=== PATIENT | male | born 1950 | race Caucasian/White ===

== ENCOUNTER → 2017-08-10 10:02 | Outpatient (CLI) | payer MEDICARE, SELFPAY ==
[2017-08-10 12:29] LABS: Absolute Lymphocyte Count 1.81 X10^3/ul (0.83-4.51); Absolute Neutrophil Count 2.5 X10^3/uL (2.0-7.7); Basophil# 0.04 X10^3/uL; Basophil% 0.7 % (0-1); Eosinophil# 0.28 X10^3/uL; Eosinophils% 5.2 % (0-5); Hematocrit 43.8 % (40-54); Hemoglobin 14.7 g/dl (13.0-16.5); Lymphocyte # 1.81 X10^3/ul (4.0); Lymphocyte % 33.5 % (19-41); Mean Corp Hgb Conc 33.6 g/gl (32-36); Mean Corpuscular Hgb 31.5 pg (27.0-32.0); Mean Corpuscular Volume 93.8 fL (80-94); Mean Platelet Vol. 10.4 fl (6.2-12.0); Monocyte# 0.81 X10^3/uL; Neutrophil # 2.47 X10^3/uL (2.7-7.7); Neutrophil % 45.6 % (47-70); Platelet Count 264 K/mm3 (150-450); RBC Distribution Width CV 12.3 % (11.6-14.6); RBC Distribution Width SD 41.6 fl (35.1-43.9); Red Blood Count 4.67 M/mm3 (4.6-6.2); White Blood Count 5.4 K/mm3 (4.4-11.0)
[2017-08-10 12:34] LABS: POSITIVE COUNT NO; POSITIVE DIFFERENTIAL NO; POSITIVE MORPHOLOGY NO
[2017-08-10 13:25] LABS: ALB/GLOB Ratio 1.1 RATIO (0.9-2.4); AST(SGOT) 28 U/L (15-37); Alanine Aminotransfer ALT/SGPT 38 U/L (12-78); Albumin, Serum 3.8 g/dL (3.4-5.0); Alkaline Phosphatase 62 U/L (45-117); Anion Gap 7 (5-15); BUN 15 mg/dL (7-18); BUN/Creat Ratio 15.2 RATIO (10-20); Calcium,Total 8.7 mg/dL (8.5-10.1); Chloride 104 mmol/L (98-107); Cholesterol 202 mg/dL (200); Creatinine, Serum 0.99 mg/dL (0.70-1.30); EST Glomerular Filtration Rate 81 mL/min (>60); Est Glom Filt Rate - Afr Amer 98 mL/min (>60); Globulin 3.4 g/dL (2.2-4.2); Glucose 94 mg/dL (70-110); High Density Lipoprotein 54 mg/dL; Potassium 4.2 mmol/L (3.5-5.1); Protein, Total 7.2 g/dL (6.4-8.2); Sodium Level 139 mmol/L (136-145); Thyroid Stim Hormone (TSH) 1.94 uIU/mL (0.358-3.74); Triglycerides 99 mg/dL; Very Low Density Lipoprotein 20 mg/dL (5-40)
== END ==
PROVIDERS: Family Provider Family Medicine; PCP Family Medicine; Visit Provider Family Medicine
DX: I10 Essential (primary) hypertension (principal); E78.5 Hyperlipidemia, unspecified
CPT/HCPCS: 36415; 80053; 80061; 84443; 85025

== ENCOUNTER → 2019-09-15 | Outpatient (CLI) | payer MEDICARE, SELFPAY ==
[2019-09-15 12:53] LABS: Absolute Lymphocyte Count 1.63 X10^3/uL (0.83-4.51); Absolute Neutrophil Count 2.5 X10^3/uL (2.0-7.7); Basophil# 0.05 X10^3/uL; Eosinophil# 0.37 X10^3/uL; Eosinophils% 7.2 % (0-5); Hematocrit 43.7 % (40-54); Hemoglobin 14.3 g/dL (13.0-16.5); Lymphocyte # 1.63 X10^3/ul (4.0); Lymphocyte % 31.5 % (19-41); Mean Corp Hgb Conc 32.7 g/dL (32-36); Mean Corpuscular Hgb 30.8 pg (27.0-32.0); Mean Corpuscular Volume 94.2 fL (80-94); Mean Platelet Vol. 10.4 fl (6.2-12.0); Monocyte# 0.63 X10^3/uL; Monocyte% 12.2 % (0-10); NRBC Flagged by Analyzer 0 % (0-5); Neutrophil # 2.48 X10^3/uL (2.7-7.7); Neutrophil % 47.9 % (47-70); Platelet Count 256 K/mm3 (150-450); RBC Distribution Width CV 12.3 % (11.6-14.6); RBC Distribution Width SD 41.9 fl (35.1-43.9); Red Blood Count 4.64 M/mm3 (4.6-6.2); White Blood Count 5.2 K/mm3 (4.4-11.0)
[2019-09-15 13:24] LABS: ALB/GLOB Ratio 1.1 RATIO (0.9-2.4); AST(SGOT) 28 U/L (15-37); Alanine Aminotransfer ALT/SGPT 35 U/L (16-61); Albumin, Serum 3.7 g/dL (3.2-5.0); Alkaline Phosphatase 63 U/L (45-117); Anion Gap 3 (5-15); BUN 13 mg/dL (7-18); BUN/Creat Ratio 13.9 RATIO (10-20); Calcium,Total 8.8 mg/dL (8.5-10.1); Chloride 108 mmol/L (98-107); Cholesterol 204 mg/dL (200); Creatinine, Serum 0.93 mg/dL (0.70-1.30); EST Glomerular Filtration Rate 86 mL/min (>60); Est Glom Filt Rate - Afr Amer 104 mL/min (>60); Globulin 3.3 g/dL (2.2-4.2); Glucose 93 mg/dL (74-106); High Density Lipoprotein 51 mg/dL; Potassium 4.2 mmol/L (3.5-5.1); Sodium Level 140 mmol/L (136-145); Triglycerides 143 mg/dL; Very Low Density Lipoprotein 29 mg/dL (5-40)
== END | disposition home or self-care (01) ==
PROVIDERS: PCP Family Medicine; Visit Provider Family Medicine
DX: Z00.00 Encounter for general adult medical examination without abnormal findings (principal); E78.5 Hyperlipidemia, unspecified; E16.2 Hypoglycemia, unspecified; Z51.81 Encounter for therapeutic drug level monitoring
CPT/HCPCS: 36415; 80053; 80061; 85025

== ENCOUNTER → 2019-09-18 | Outpatient (CLI) | payer MEDICARE, SELFPAY ==
[2019-09-18 16:12] LABS: PSA,Total - Annual Screen 0.44 ng/mL (0.00-4.00)
[2019-09-23 20:07] LABS: Dilute Prothrombin Time (dPT) 41.2 sec (0.0-55.0); Dilute Russell Viper Venom 40.9 sec (0.0-47.0); PTT-LA 36.8 sec (0.0-51.9); Protein C Antigen 93 % (60-150); Protein C, Functional 111 % (73-180); Thrombin Time 17.7 sec (0.0-23.0); dPT Confirm Ratio 0.92 Ratio (0.00-1.40)
[2019-09-23 21:48] LABS: Antithrombin 3 Function 88 % (75-135); Interpretation Comment: (.); Protein S, Free 168 % (57-157); Protein S, Funtional 115 % (63-140); Protein S, Total 106 % (60-150)
== END | disposition home or self-care (01) ==
LOC: BFHLAB 14:00
PROVIDERS: PCP Family Medicine; Visit Provider Family Medicine
DX: D68.59 Other primary thrombophilia (principal); Z12.5 Encounter for screening for malignant neoplasm of prostate
CPT/HCPCS: 36415; 81241; 84153; 85300; 85302; 85303; 85305; 85306; G0103

== ENCOUNTER → 2022-01-02 | Outpatient (CLI) | payer MEDICARE, SELFPAY ==
[2022-01-02 11:15] LABS: Absolute Lymphocyte Count 2.05 X10^3/uL (0.83-4.51); Absolute Neutrophil Count 3.6 X10^3/uL (2.0-7.7); Basophil# 0.05 X10^3/uL; Basophil% 0.7 % (0-1); Eosinophil# 0.33 X10^3/uL; Eosinophils% 4.7 % (0-5); Hematocrit 42.4 % (40-54); Hemoglobin 14.2 g/dL (13.0-16.5); Lymphocyte # 2.05 X10^3/ul (0.83-4.51); Lymphocyte % 29.2 % (19-41); Mean Corp Hgb Conc 33.5 g/dL (32-36); Mean Corpuscular Hgb 30.9 pg (27.0-32.0); Mean Corpuscular Volume 92.4 fL (80-94); Mean Platelet Vol. 9.5 fl (6.2-12.0); Monocyte# 1.02 X10^3/uL; Monocyte% 14.5 % (0-10); NRBC Flagged by Analyzer 0 % (0-5); Neutrophil # 3.56 X10^3/uL (2.7-7.7); Neutrophil % 50.8 % (47-70); Platelet Count 270 K/mm3 (150-450); RBC Distribution Width CV 12.5 % (11.6-14.6); RBC Distribution Width SD 42.4 fl (35.1-43.9); Red Blood Count 4.59 M/mm3 (4.6-6.2)
[2022-01-02 12:00] LABS: ALB/GLOB Ratio 1.1 RATIO (0.9-2.4); AST(SGOT) 27 U/L (15-37); Alanine Aminotransfer ALT/SGPT 40 U/L (16-61); Albumin, Serum 3.6 g/dL (3.2-5.0); Alkaline Phosphatase 60 U/L (45-117); Anion Gap 4 (5-15); BUN 16 mg/dL (7-18); BUN/Creat Ratio 15.8 RATIO (10-20); Calcium,Total 8.9 mg/dL (8.5-10.1); Chloride 106 mmol/L (98-107); Cholesterol 206 mg/dL (200); Creatinine, Serum 1.01 mg/dL (0.70-1.30); EST Glomerular Filtration Rate 78 mL/min (>60); Est Glom Filt Rate - Afr Amer 94 mL/min (>60); Globulin 3.4 g/dL (2.2-4.2); Glucose 93 mg/dL (74-106); High Density Lipoprotein 52 mg/dL; PSA,Total - Annual Screen 0.51 ng/mL (0.00-4.00); Potassium 4.4 mmol/L (3.5-5.1); Sodium Level 140 mmol/L (136-145); Triglycerides 63 mg/dL; Very Low Density Lipoprotein 13 mg/dL (5-40)
== END | disposition home or self-care (01) ==
PROVIDERS: PCP Family Medicine; Referring Provider Family Medicine; Visit Provider Family Medicine
DX: E16.2 Hypoglycemia, unspecified (principal); E78.5 Hyperlipidemia, unspecified; R53.83 Other fatigue; Z12.5 Encounter for screening for malignant neoplasm of prostate
CPT/HCPCS: 36415; 80053; 80061; 84153; 85025; G0103

== ENCOUNTER → 2024-07-23 | Outpatient (CLI) | payer MEDICARE, SELFPAY ==
[2024-07-23 12:46] LABS: ALB/GLOB Ratio 1.1 RATIO (0.9-2.4); AST(SGOT) 23 U/L (15-37); Alanine Aminotransfer ALT/SGPT 30 U/L (16-61); Albumin, Serum 3.6 g/dL (3.2-5.0); Alkaline Phosphatase 64 U/L (45-117); Anion Gap 3 (5-15); BUN 14 mg/dL (7-18); BUN/Creat Ratio 14.3 RATIO (10-20); Calcium,Total 9.1 mg/dL (8.5-10.1); Chloride 107 mmol/L (98-107); Cholesterol 231 mg/dL (200); Creatinine, Serum 0.98 mg/dL (0.70-1.30); EST Glomerular Filtration Rate 80 mL/min (>60); Est Glom Filt Rate - Afr Amer 96 mL/min (>60); Globulin 3.4 g/dL (2.2-4.2); Glucose 102 mg/dL (74-106); High Density Lipoprotein 58 mg/dL; Potassium 4.3 mmol/L (3.5-5.1); Sodium Level 139 mmol/L (136-145); Triglycerides 103 mg/dL; Very Low Density Lipoprotein 21 mg/dL (5-40)
[2024-07-23 13:07] LABS: Absolute Neutrophil Count 3.5 X10^3/uL (2.0-7.7); Basophil# 0.06 X10^3/uL; Basophil% 0.8 % (0-1); Eosinophil# 0.47 X10^3/uL; Eosinophils% 6.6 % (0-5); Hematocrit 44.9 % (40-54); Hemoglobin 14.6 g/dL (13.0-16.5); Lymphocyte % 29.7 % (19-41); Mean Corp Hgb Conc 32.5 g/dL (32-36); Mean Corpuscular Hgb 30.5 pg (27.0-32.0); Mean Corpuscular Volume 93.9 fL (80-94); Monocyte# 0.91 X10^3/uL; Monocyte% 12.9 % (0-10); NRBC Flagged by Analyzer 0 % (0-5); Neutrophil # 3.52 X10^3/uL (2.7-7.7); Neutrophil % 49.7 % (47-70); Platelet Count 303 K/mm3 (150-450); RBC Distribution Width CV 12.5 % (11.6-14.6); RBC Distribution Width SD 43.2 fl (35.1-43.9); Red Blood Count 4.78 M/mm3 (4.6-6.2); White Blood Count 7.1 K/mm3 (4.4-11.0)
== END | disposition home or self-care (01) ==
LOC: BFHLAB 10:40
PROVIDERS: PCP Family Medicine; Referring Provider Family Medicine; Visit Provider Family Medicine
DX: E78.5 Hyperlipidemia, unspecified (principal); Z12.5 Encounter for screening for malignant neoplasm of prostate; Z51.81 Encounter for therapeutic drug level monitoring
CPT/HCPCS: 36415; 80053; 80061; 84153; 85025; G0103

== ENCOUNTER → 2025-02-26 | Outpatient (CLI) | payer MEDICARE, SELFPAY ==
[2025-02-26 12:57] LABS: PSA,Total- Diagnostic 0.37 ng/mL (0.00-4.00)
[2025-02-26 13:36] LABS: Cholesterol 234 mg/dL (<=200); Low Density Lipoprotein Calc. 161 mg/dL; Triglycerides 95 mg/dL; Very Low Density Lipoprotein 19 mg/dL (5-40); cholesterol:hdl ratio screen 4.33
--- OUTSIDE RECORDS SUMMARY | 2025-02-26 15:27 | XMS RPT_ITS | CCD ---
Author Organization [facility] CliniSymi Care Team Providers Care Manager Ent Name Role Phone Jory Tapia Attending Unavailable Jory Tapia Referring Unavailable Jory Tapia Primary Care Unavailable Jory Tapia Attending Unavailable Jory Tapia Primary Care Unavailable Problems Problem Classification Problem Date Documented Da te Episodic/Chronic Disorders of lipid metabolism (2 sources) Hyperlipidemia, unspecified; Translations: [Hyperlipidemia, unspecified] Onset: 08-14-2024 Chronic Other screening for suspected conditions (not mental disorders or infectious disease) (1 source) Elevated prostate specific antigen [PSA]; Translations: [Elevated prostate specific antigen [PSA]] Onset: 02-23-2025 Episodic Results Test Name Value Interpretation Reference Range Facil ity CBC W/Diff, Automatedon - Absolute Lymph 2.10 X10 3/uL Normal 0.83-4.51 [facility] Comment on above: Performed By: #### L 501.9910, L500.4050, L500.4100, L100.0100 #### [facility] [address] [place], [address] Absolute Neut 3.5 X10 3/uL Normal 2.0-7.7 [facility] Comment on above: Performed By: #### L 501.9910, L500.4050, L500.4100, L100.0100 #### [facility] [address] [place], [address] Basophils/100 WBC (Bld) 0.8 % Normal 0-1 [facility] Comment on above: Performed By: #### L 501.9910, L500.4050, L500.4100, L100.0100 #### [facility] [address] [place], [address] Eosinophils/100 WBC (Bld) 6.6 % High 0-5 [facility] Comment on above: Performed By: #### L 501.9910, L500.4050, L500.4100, L100.0100 #### [facility] [address] [place], [address] Erythrocyte distribution width (RBC) [Ratio] 12.5 % Normal 11.6-14.6 [facility] Comment on above: Performed By: #### L 501.9910, L500.4050, L500.4100, L100.0100 #### [facility] [address] [place], [address] Hematocrit (Bld) [Volume fraction] 44.9 % Normal 40-54 [facility] Comment on above: Performed By: #### L 501.9910, L500.4050, L500.4100, L100.0100 #### [facility] [address] [place], [address] Hemoglobin (Bld) [Mass/Vol] 14.6 g/dL Normal 13.0-16.5 [facility] Comment on above: Performed By: #### L 501.9910, L500.4050, L500.4100, L100.0100 #### [facility] [address] [place], [address] IG% 0.300 Normal 0.0-0.9 [facility] Comment on above: Result Comment: IG% - Immature Granulocytes (promyelocytes, myelocytes and metamyelocytes) > 1% indicates that a LEFT SHIFT is Present. Performed By: #### L 501.9910, L500.4050, L500.4100, L100.0100 #### [facility] [address] [place], [address] Lymphocytes/100 WBC (Bld) 29.7 % Normal 19-41 [facility] Comment on above: Performed By: #### L 501.9910, L500.4050, L500.4100, L100.0100 #### [facility] [address] [place], [address] MCH (RBC) [Entitic mass] 30.5 pg Normal 27.0-32.0 [facility] Comment on above: Performed By: #### L 501.9910, L500.4050, L500.4100, L100.0100 #### [facility] [address] [place], [address] MCHC (RBC) [Mass/Vol] 32.5 g/dL Normal 32-36 [facility] Comment on above: Performed By: #### L 501.9910, L500.4050, L500.4100, L100.0100 #### [facility] [address] [place], [address] MCV (RBC) [Entitic vol] 93.9 fL Normal 80-94 [facility] Comment on above: Performed By: #### L 501.9910, L500.4050, L500.4100, L100.0100 #### [facility] [address] [place], [address] Monocytes/100 WBC (Bld) 12.9 % High 0-10 [facility] Comment on above: Performed By: #### L 501.9910, L500.4050, L500.4100, L100.0100 #### [facility] [address] [place], [address] Neutrophils/100 WBC (Bld) 49.7 % Normal 47-70 [facility] Comment on above: Performed By: #### L 501.9910, L500.4050, L500.4100, L100.0100 #### [facility] [address] [place], [address] Nucleated RBC (Bld) [#/Vol] 0 10*3/uL Normal 0-5 [facility] Comment on above: Performed By: #### L 501.9910, L500.4050, L500.4100, L100.0100 #### [facility] [address] [place], [address] Platelet mean volume (Bld) [Entitic vol] 10.0 fL Normal 6.2-12.0 [facility] Comment on above: Performed By: #### L 501.9910, L500.4050, L500.4100, L100.0100 #### [facility] [address] [place], [address] Platelets (Bld) [#/Vol] 303 10*3/uL Normal 150-450 [facility] Comment on above: Performed By: #### L 501.9910, L500.4050, L500.4100, L100.0100 #### [facility] [address] [place], [address] RBC (Bld) [#/Vol] 4.78 10*6/uL Normal 4.6-6.2 [facility] Comment on above: Performed By: #### L 501.9910, L500.4050, L500.4100, L100.0100 #### [facility] [address] [place], [address] RDW SD 43.2 fl Normal 35.1-43.9 [facility] Comment on above: Performed By: #### L 501.9910, L500.4050, L500.4100, L100.0100 #### [facility] [address] [place], [address] WBC (Bld) [#/Vol] 7.1 10*3/uL Normal 4.4-11.0 [facility] Comment on above: Performed By: #### L 501.9910, L500.4050, L500.4100, L100.0100 #### [facility] [address] [place], [address] Comprehensive Metabolic Prof ilon 07-23-2024 Albumin [Mass/Vol] 3.6 g/dL Normal 3.2-5.0 [facility] Comment on above: Performed By: #### L 501.9910, L500.4050, L500.4100, L100.0100 #### [facility] [address] [place], [address] Albumin/Globulin [Mass ratio] 1.1 {ratio} Normal 0.9-2.4 [facility] Comment on above: Performed By: #### L 501.9910, L500.4050, L500.4100, L100.0100 #### [facility] [address] [place], [address] ALK P 64 U/L Normal 45-117 [facility] Comment on above: Performed By: #### L 501.9910, L500.4050, L500.4100, L100.0100 #### [facility] [address] [place], [address] ALT [Catalytic activity/Vol] 30 U/L Normal 16-61 [facility] Comment on above: Performed By: #### L 501.9910, L500.4050, L500.4100, L100.0100 #### [facility] [address] [place], [address] AST [Catalytic activity/Vol] 23 U/L Normal 15-37 [facility] Comment on above: Performed By: #### L 501.9910, L500.4050, L500.4100, L100.0100 #### [facility] [address] [place], [address] Bilirubin [Mass/Vol] 0.70 mg/dL Normal 0.20-1.00 [facility] Comment on above: Result Comment: For patients on eltrombopag therapy, use of Dimension [place] TBIL is not recommended. Performed By: #### L 501.9910, L500.4050, L500.4100, L100.0100 #### [facility] [address] [place], [address] BUN/CRE 14.3 RATIO Normal 10-20 [facility] Comment on above: Performed By: #### L 501.9910, L500.4050, L500.4100, L100.0100 #### [facility] [address] [place], [address] CA,Total 9.1 mg/dL Normal 8.5-10.1 [facility] Comment on above: Performed By: #### L 501.9910, L500.4050, L500.4100, L100.0100 #### [facility] [address] [place], [address] Chloride [Moles/Vol] 107 mmol/L Normal 98-107 [facility] Comment on above: Performed By: #### L 501.9910, L500.4050, L500.4100, L100.0100 #### [facility] [address] [place], [address] CO2 [Moles/Vol] 29.0 mmol/L Normal 21.0-32.0 [facility] Comment on above: Performed By: #### L 501.9910, L500.4050, L500.4100, L100.0100 #### [facility] [address] [place], [address] Creatinine [Mass/Vol] 0.98 mg/dL Normal 0.70-1.30 [facility] Comment on above: Result Comment: The validity of the calculated GFR GFRAA in patients over 70 years has not been determined. Clinical correlation is essential. Performed By: #### L 501.9910, L500.4050, L500.4100, L100.0100 #### [facility] [address] [place], [address] EST GFR - AA 96 mL/min Normal >60 [facility] Comment on above: Result Comment: Afri can Ukrainian GFR Calc Performed By: #### L 501.9910, L500.4050, L500.4100, L100.0100 #### [facility] [address] [place], [address] GAP 3 Low 5-15 [facility] Comment on above: Performed By: #### L 501.9910, L500.4050, L500.4100, L100.0100 #### [facility] [address] [place], [address] GFR/1.73 sq M.predicted among non-blacks MDRD (S/P/Bld) [Vol rate/Area] 80 mL/min/{1.73_m2} Normal >60 [facility] Comment on above: Result Comment: Non- GFR Calc Performed By: #### L 501.9910, L500.4050, L500.4100, L100.0100 #### [facility] [address] [place], [address] Globulin (S) [Mass/Vol] 3.4 g/dL Normal 2.2-4.2 [facility] Comment on above: Performed By: #### L 501.9910, L500.4050, L500.4100, L100.0100 #### [facility] [address] [place], [address] Glucose [Mass/Vol] 102 mg/dL Normal 74-106 [facility] Comment on above: Result Comment: Fast ing Glucose result from 100 to 125 mg/dL suggests IMPAIRED HOMEOSTASIS per A.D.A. criteria. Performed By: #### L 501.9910, L500.4050, L500.4100, L100.0100 #### [facility] [address] [place], [address] Potassium [Moles/Vol] 4.3 mmol/L Normal 3.5-5.1 [facility] Comment on above: Performed By: #### L 501.9910, L500.4050, L500.4100, L100.0100 #### [facility] [address] [place], [address] Sodium [Moles/Vol] 139 mmol/L Normal 136-145 [facility] Comment on above: Performed By: #### L 501.9910, L500.4050, L500.4100, L100.0100 #### [facility] [address] [place], [address] T PROT 7.0 g/dL Normal 6.4-8.2 [facility] Comment on above: Performed By: #### L 501.9910, L500.4050, L500.4100, L100.0100 #### [facility] [address] [place], [address] Urea nitrogen [Mass/Vol] 14 mg/dL Normal 7-18 [facility] Comment on above: Performed By: #### L 501.9910, L500.4050, L500.4100, L100.0100 #### [facility] [address] [place], [address] Lipid Profileon 07-23-2024 Cholesterol [Mass/Vol] 231 mg/dL High 200 [facility] Comment on above: Result Comment: <200 mg/dL Desirable 200-240 mg/dL Borderline >240 mg/dL High Risk Performed By: #### L 501.9910, L500.4050, L500.4100, L100.0100 #### [facility] [address] [place], [address] Cholesterol in HDL [Mass/Vol] 58 mg/dL Normal [facility] Comment on above: Result Comment: The drugs N-Acetylcysteine and Metamizole may falsely depress this assay. Reference Range HDL <40 mg/dL Low HDL Cholesterol HDL >or= 60 mg/dL High HDL Cholesterol Performed By: #### L 501.9910, L500.4050, L500.4100, L100.0100 #### [facility] [address] [place], [address] Cholesterol in LDL [Mass/Vol] 152 mg/dL High 0-130 [facility] Comment on above: Performed By: #### L 501.9910, L500.4050, L500.4100, L100.0100 #### [facility] [address] [place], [address] Cholesterol in VLDL [Mass/Vol] 21 mg/dL Normal 5-40 [facility] Comment on above: Performed By: #### L 501.9910, L500.4050, L500.4100, L100.0100 #### [facility] [address] [place], [address] Triglyceride [Mass/Vol] 103 mg/dL Normal [facility] Comment on above: Result Comment: The drugs N-Acetylcysteine and Metamizole may falsely depress this assay. Serum Triglycerides Reference Interval Normal <150 mg/dL Borderline high 150 - 199 mg/dL High 200 - 499 mg/dL Very High > or = 500 mg/dL Performed By: #### L 501.9910, L500.4050, L500.4100, L100.0100 #### [facility] [address] [place], [address] PSA,Total - Annual Screenon 07-23-2024 PSA,TOT SCREEN 1.40 ng/mL Normal 0.00-4.00 [facility] Comment on above: Result Comment: This test was performed using the TPSA assay method for the [employer] system. Values obtained with different assay methods cannot be used interchangably. When changing PSA assays in the course of monitoring a patient, additional sequential testing should be carried out to confirm baseline values. Performed By: #### L 501.9910, L500.4050, L500.4100, L100.0100 #### [facility] [address] [place], [address] Absolute lymphocyte counton 01-02-2022 Lymphocytes Auto (Unsp spec) [#/Vol] 2.05 10*3/uL 0.83-4.51 [facility] Work Phone: Basophil percentageon 2021 Basophils/100 WBC (Bld) 0.7 % 0-1 [facility] Work Phone: Bilirubin [Mass/Vol] 0.70 mg/dL 0.20-1.00 [facility] Work Phone: Comment on above: For patients on eltr ombopag therapy, use of Dimension [place] TBIL is not recommended. Chloride [Moles/Vol] 106 mmol/L 98-107 [facility] Work Phone: Cholesterol [Mass/Vol] 206 mg/dL <200 [facility] Work Phone: Comment on above: <200 mg/dL Desirable 200-240 mg/dL Borderline >240 mg/dL High Risk Eosinophils/100 WBC (Bld) 4.7 % 0-5 [facility] Work Phone: Glucose [Mass/Vol] 93 mg/dL 74-106 [facility] Work Phone: Neutrophils (Bld) [#/Vol] 3.6 10*3/uL 2.0-7.7 [facility] Work Phone: Neutrophils/100 WBC (Bld) 50.8 % 47-70 [facility] Work Phone: Potassium [Moles/Vol] 4.4 mmol/L 3.5-5.1 [facility] Work Phone: Protein [Mass/Vol] 7.0 g/dL 6.4-8.2 [facility] Work Phone: Sodium [Moles/Vol] 140 mmol/L 136-145 [facility] Work Phone: Triglyceride [Mass/Vol] 63 mg/dL <199 [facility] Work Phone: Comment on above: The drugs N-Acetylcy steine and Metamizole may falsely depress this assay.Serum Triglycerides Reference Interval Normal <150 mg/dL Borderline high 150 - 199 mg/dL High 200 - 499 mg/dL Very High > or = 500 mg/dL WBC (Bld) [#/Vol] 7.0 10*3/uL 4.4-11.0 [facility] Work Phone: Blood erythrocytes count (nu mber/volume)on 01-02-2022 RBC (Bld) [#/Vol] 4.59 10*6/uL 4.6-6.2 [facility] Work Phone: Blood hemoglobin measurement (mass/volume)on 01-02-2022 Hemoglobin (Bld) [Mass/Vol] 14.2 g/dL 13.0-16.5 [facility] Work Phone: Blood lymphocytes/100 leukoc yteson 01-02-2022 Lymphocytes/100 WBC (Bld) 29.2 % 19-41 [facility] Work Phone: Blood monocytes/100 leukocyt eson 01-02-2022 Monocytes/100 WBC (Bld) 14.5 % 0-10 [facility] Work Phone: Blood platelet mean volumeon 01-02-2022 Platelet mean volume (Bld) [Entitic vol] 9.5 fL 6.2-12.0 [facility] Work Phone: Determination of erythrocyte mean corpuscular volume (MCV)on 01-02-2022 MCV (RBC) [Entitic vol] 92.4 fL 80-94 [facility] Work Phone: Hematocrit Auto (Bld) [Volum e fraction]on 01-02-2022 Hematocrit (Bld) [Volume fraction] 42.4 % 40-54 [facility] Work Phone: Laboratory - Chemistry and C hemistry - challengeon 01-02-2022 ALP [Catalytic activity/Vol] 60 U/L 45-117 [facility] Work Phone: ALT [Catalytic activity/Vol] 40 U/L 16-61 [facility] Work Phone: CO2 [Moles/Vol] 30.0 mmol/L 21.0-32.0 [facility] Work Phone: Globulin (S) [Mass/Vol] 3.4 g/dL 2.2-4.2 [facility] Work Phone: Urea nitrogen/Creatinine [Mass ratio] 15.8 mg/mg 10-20 [facility] Work Phone: Laboratory - Hematology and Cell countson 01-02-2022 Erythrocyte distribution width (RBC) [Entitic vol] 42.4 fL 35.1-43.9 [facility] Work Phone: Erythrocyte distribution width (RBC) [Ratio] 12.5 % 11.6-14.6 [facility] Work Phone: Immature granulocytes/100 WBC (Bld) 0.100 % 0.0-0.9 [facility] Work Phone: Comment on above: IG% - Immature Granu locytes (promyelocytes, myelocytes and metamyelocytes) > 1% indicates that a LEFT SHIFT is Present. MCH (RBC) [Entitic mass] 30.9 pg 27.0-32.0 [facility] Work Phone: Nucleated RBC/100 WBC (Bld) [Ratio] 0 % 0-5 [facility] Work Phone: MCHC Auto (RBC) [Mass/Vol]on 01-02-2022 MCHC (RBC) [Mass/Vol] 33.5 g/dL 32-36 [facility] Work Phone: No Panel Informationon 01-02 Estimated GFR (MDRD) Amer 94 mL/min >60 [facility] Work Phone: Comment on above: GFR Calc Estimated GFR (MDRD) Non-Af Amer 78 mL/min >60 [facility] Work Phone: Comment on above: Non- GFR Calc Prostate Specific Antigen Screen 0.51 ng/mL 0.00-4.00 [facility] Work Phone: Comment on above: This test was perfor med using the TPSA assay method for [employer] system. Values obtained with differentassay methods cannot be used interchangably.When changing PSA assays in the course of monitoring apatient, additional sequential testing should be carriedout to confirm baseline values. Platelets bldon 01-02-2022 Platelets (Bld) [#/Vol] 270 10*3/uL 150-450 [facility] Work Phone: Serum or plasma albumin idalia urement (mass/volume)on 01-02-2022 Albumin [Mass/Vol] 3.6 g/dL 3.2-5.0 [facility] Work Phone: Serum or plasma albumin/glob ulin mass ratioon 01-02-2022 Albumin/Globulin [Mass ratio] 1.1 {ratio} 0.9-2.4 [facility] Work Phone: Serum or plasma calcium idalia urement (mass/volume)on 01-02-2022 Calcium [Mass/Vol] 8.9 mg/dL 8.5-10.1 [facility] Work Phone: Serum or plasma cholesterol in HDL measurement (mass/volume)on 01-02-2022 Cholesterol in HDL [Mass/Vol] 52 mg/dL >40 [facility] Work Phone: Comment on above: The drugs N-Acetylcy steine and Metamizole may falsely depress this assay. Reference Range HDL <40 mg/dL Low HDL Cholesterol HDL >or= 60 mg/dL High HDL Cholesterol Serum or plasma cholesterol in VLDL measurement (mass/volume)on 01-02-2022 Cholesterol in VLDL [Mass/Vol] 13 mg/dL 5-40 [facility] Work Phone: Serum or plasma creatinine m easurement (mass/volume)on 01-02-2022 Creatinine [Mass/Vol] 1.01 mg/dL 0.70-1.30 [facility] Work Phone: Comment on above: The validity of the calculated GFR & GFRAA in patients over 70 years has not been determined. Clinical correlation is essential. Serum or plasma low density lipoprotein (LDL) cholesterol measurement (mass/volume)on 01-02-2022 Cholesterol in LDL [Mass/Vol] 141 mg/dL 0-130 [facility] Work Phone: Serum or plasma urea nitroge n measurement (mass/volume)on 01-02-2022 Urea nitrogen [Mass/Vol] 16 mg/dL 7-18 [facility] Work Phone: Thin prep Papanicolaou smear with manual screeningon 01-02-2022 Thin prep Papanicolaou smear with manual screening 27 U/L 15-37 [facility] Work Phone: Thin prep Papanicolaou smear with manual screening 4 5-15 [facility] Work Phone: HISTORY PHYSICALon 9 HISTORY PHYSICAL HNO ID: [id number] Author: Yousuf Chávez Service: General Surgery Author Type: Physician Type: HANDP Filed: 05/27/2019 9:57 AM Note Text: HISTORY AND PHYSICAL ? Dana Crane 1950 ? REFERRING PHYSICIAN: Jory Tapia DO ? CHIEF COMPLAINT: Consult (Consult Colonscopy) ? HPI: The patient is a 68 year old male referred for endoscopy. Dana notes no history of colon complaints. ? The patient notes no history of upper GI complaints. ? Dana has undergone prior endoscopy. He had a colonoscopy 5 years previously that demonstrated no abnormalities, but the prep was poor. ? The patient is being seen by me today at the request of Dr. Jory Tapia DO for my opinion and advice regarding follow up colonoscopy. ? ? PAST MEDICAL HISTORY PAST MEDICAL HISTORY Diagnosis Date - Unspecified hemorrhoids without mention of complication ? ? ? PAST SURGICAL HISTORY PAST SURGICAL HISTORY Procedure Laterality Date - COLONOSCOP W/ OR W/O BRSH SPEC ? 08/28/13 ? Colonoscopy - EXCISION OF UVULA ? ? ? flapped removed - REMOVAL OF TONSILS,<12 Y/O ? ? - VASECTOMY HX ? 07/16/1989 ? ? ? CURRENT MEDICATIONS ? Current Outpatient Medications: [place]-3 Fatty Acids-Vitamin E (FISH OIL) 1,000 mg cap Take 1 capsule by mouth once daily. multivitamin tablet Take 1 tablet by mouth once daily. peg 3350-Electrolytes (GOLYTELY) 236-22.74-6.74 -5.86 gram suspension Take 4,000 mL by mouth one time only for 1 dose. Refer to printed prep instructions from your doctor. peg 3350-electrolytes 240-22.72-6.72 gram solution Take 4000 ml as directed. Follow written instructions given at the doctors office. FLAXSEED OIL ORAL Take by mouth as directed. spreads on cereal ? No current facility-administered medications for this visit. ? ALLERGIES: Codeine; Penicillins; Streptomycin ? 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 Employer: [employer] Social Needs Financial resource strain: Not on file Food insecurity: Worry: Not on file Inability: Not on file Transportation needs: Medical: Not on file Non-medical: Not on file Tobacco Use Smoking status: Never Smoker Smokeless tobacco: Never Used Substance and Sexual Activity Alcohol use: Yes Comment: occassionally Drug use: No Sexual activity: Not on file Lifestyle Physical activity: Days per week: Not on file Minutes per session: Not on file Stress: Not on file Relationships Social connections: Talks on phone: Not on file Gets together: Not on file Attends voodoo service: Not on file Active member of club or organization: Not on file Attends meetings of clubs or organizations: Not on file Relationship status: Not on file Intimate partner violence: Fear of current or ex partner: Not on file Emotionally abused: Not on file Physically abused: Not on file Forced sexual activity: Not on file Other Topics Concerns: Not on file Social History Narrative Not on file ? FAMILY HISTORY: FAMILY HISTORY FAMILY HISTORY Problem Relation Age of Onset - Heart Maternal Grandfather ? ? at 78 heart attack-hardening of arteries - Emphysema Father ? ? in 1963, possible lung cancer- at 59-60yrs of age - Heart Mother ? ? at 78, found node on lungs - Psychiatry Mother ? ? emotional breakdown-depression - Alcohol/Drug Brother ? ? 1/2 brother-heart attack - Heart Brother ? ? triple bypass-1/2 brother - Diabetes Brother ? ? 1/2 brother ? ? REVIEW OF SYMPTOMS: The review of systems data was entered by the nurse and reviewed by me ? REVIEW OF SYSTEMS: ?General:???The patient denies?fatigue, denies?weight loss, denies?weight gain, denies?feeling hot, and denies?feelings of cold. ?Eyes: ?The patient denies?glaucoma, denies?eye injury/surgery, wears?glasses or contacts. ?Ear/Nose/Throat: ?The patient denies?allergies, denies?hayfever, denies?ear infections, and denies?bloody noses. ?Cardiovascular: ?The patient denies?chest pain, denies?heart disease, denies?high blood pressure,denies?cardi ac stent, denies?prior heart attack, denies?irregular heart beat, denies?high cholesterol, ?denies?poor circulation, denies?heart failure, other cardiac issues, denies?claudication, denies?cold feet, denies?peripheral arterial stent. ?Respiratory: ?The patient denies?tuberculosis, denies?pneumonia, denies?frequent cough, denies?pulmonary embolism, denies?shortness of breath, and denies?coughing up blood. ?Gastrointestinal : ?The patient denies?difficulty swallowing, denies?acid reflux, denies?ulcers, denies?vomiting, denies?jaundice/hepat itis, denies?gallbladder problems, denies?black or tarry stools, denies?hemorrhoids, denies?bleeding from rectum, denies?diverticulitis , denies?constipation, denies?diarrhea, denies?loss of stool control, and denies?hernias. ?Kidney/Bladder: ?The patient denies?kidney stones, denies?urine infections, and denies?bloody urine. ?Skin: ?The patient denies?a history of skin cancer, denies?bleeding/colmenares ing moles, and NOTES?a history of skin rash. ?Neurologic: ?The patient denies?a history of epilepsy/convulsions, denies?headaches, denies?head/spinal injuries, and denies?stroke/TIA. ?Psychiatric: ?The patient denies?psychiatric medications, denies?depression, and denies?voices, denies?substance abuse. ?Endocrine: ?The patient denies?thyroid disorders, denies?diabetes, and denies?hormonal problems. ?Hematologic: ?The patient denies?a history of bruising, denies?bleeding, and denies?anemia, denies?blood clots. ?Infections: ?The patient denies?a history of measles and mumps, denies?rheumatic fever, and denies?sexually transmitted diseases. ?Musculoskeletal: ?The patient NOTES?back pain/injury, denies?back problems, NOTES?sciatica, denies?knee/foot trouble, NOTES?arthritis, or denies?gout. ? ? When was patient's last Mammogram screening??N/A ? ?Last Colonoscopy: ?2013? ? Kaleb Paz PHYSICAL EXAMINATION: ? General: The patient is 68 year old male, well nourished, well hydrated in no acute distress. The patient is oriented to time, place, and person. ? VITALS: Blood pressure 134/84, pulse 70, temperature 36.7 ?C (98.1 ?F), temperature source Temporal Artery, height 177.8 cm (5' 10), weight 77.3 kg (170 lb 6.4 oz), SpO2 97 %. Body mass index is 24.45 kg/m?. ? HEENT: Normal cephalic, ataumatic, pupils are equally round, sclera are anicteric, mucous membranes are moist, oropharynx is clear. Neck has no masses, asymmetry or lymphadenopathy. Thyroid is unremarkable. ? Respiratory: Clear to auscultation and percussion. Normal respiratory excursion and pattern. ? Cardiac: Examination is regular rate and rhythm. ? Abdominal exam: Soft, nontender, with no palpable masses. No hepatosplenomegaly. No palpable hernias. ? Rectal exam: exam deferred ? Extremities: no clubbing, cyanosis or edema. No adenopathy. ? Other: ? LABORATORY VALUES: As Noted ? RADIOLOGIC STUDIES: As Noted ? Assessment IMPRESSION: screening colonoscopy ? PLAN: I plan to perform lower endoscopy. We discussed the risks and benefits of the planned endoscopy. I have informed the patient that complications can occur including failure to complete the endoscopy and perforation. The patient had the opportunity to ask questions concerning the planned endoscopy. My staff has also explained the procedure to the patient in understandable terms and has given the patient printed material concerning the procedure. The patient freely consents to surgery. ? I plan to use golytely bowel preparation for endoscopy ? ? ? Diagnoses: (Z12.11) Special screening for malignant neoplasm of colon (primary encounter diagnosis) ? A letter was sent to Dr. Jory Tapia DO indicating the above finding for this patient. Return to Clinic: The patient is instructed to follow-up with me after the testing has been completed. ? Yousuf Chávez MD [facility] NURSING PROGon 05-27-2019 NURSING PROG HNO ID: [id number] Author: Macy Khalil RN Service: ? Author Type: Registered Nurse Type: Nursing Progress Note Filed: 05/27/2019 12:10 PM Note Text: Patient did not experience a fall prior to discharge. Patient did not experience a burn prior to discharge. Macy Khalil RN [facility] NURSING PROG HNO ID: [id number] Author: Macy Khalil RN Service: ? Author Type: Registered Nurse Type: Nursing Progress Note Filed: 05/27/2019 11:47 AM Note Text: Patient sitting up in bed tolerating snack and drink without problems. Macy Khalil RN [facility] NURSING PROG HNO ID: [id number] Author: Macy Khalil RN Service: ? Author Type: Registered Nurse Type: Nursing Progress Note Filed: 05/27/2019 11:33 AM Note Text: Patient arrived to PACU, on left side, abdomen soft. Patient resting comfortably, denies pain. Macy Khalil RN [facility] NURSING PROG HNO ID: [id number] Author: Megan Bhatt RN Service: Nursing Author Type: Registered Nurse Type: Nursing Progress Note Filed: 05/27/2019 11:07 AM Note Text: Patient did not experience a fall within the Intraoperative area. Patient did not experience a burn within the Intraoperative area. Megan Bhatt RN [facility] NURSING PROG HNO ID: [id number] Author: Macy Khalil RN Service: ? Author Type: Registered Nurse Type: Nursing Progress Note Filed: 05/27/2019 10:45 AM Note Text: Patient did not experience a fall within the Preoperative area. Patient did not experience a burn within the Preoperative area. [facility] PRE-OP NURSING HAND OFF NOTE SBAR Hand off given to Megan Bhatt RN. Hand off was communicated verbally and at the patient's bedside and all questions were answered. LAURA Pacheco RN [facility] PT EDon 05-27-2019 PT ED HNO ID: [id number] Author: Macy Khalil RN Service: ? Author Type: Registered Nurse Type: Patient Education Filed: 05/27/2019 11:46 AM Note Text: POST OP LEARNING RESPONSE INSTRUCTION PROVIDED TO: Patient and Spouse METHOD OF INSTRUCTION: Individual instruction Written instruction - handouts Verbal instruction PATIENT / FAMILY RESPONSE: Verbalizes understanding of: INFECTION MANAGEMENT-Signs and symptoms of an infection and importance of contacting the physician MEDICAL REGIMEN-Importance of following prescribed medical regimen PAIN MANAGEMENT-Effective strategies to manage pain in addition to pain medication PHYSICAL RESTRICTIONS-Physical restrictions and recommendations after discharge from the hospital POST-PROCEDURE INSTRUCTIONS-Correct actions to take to reduce post procedure complications PATIENT SAFETY PRINCIPLES SYMPTOM MANAGEMENT-Correct actions to take to manage symptoms associated with his/her disease/illness WORSENING CONDITION-Signs and symptoms of a worsening condition that warrant a call to the physician FOLLOW-UP PLAN: Patient instructed to call with any further issues Follow up phone call. Contact information given. SUPPLEMENTAL MATERIAL: AVS REFERRAL (RECOMMENDATION): None Electronically Signed By: Macy Khalil RN In Department: AMBULATORY SURGERY [facility] PT ED HNO ID: [id number] Author: Macy Khalil RN Service: ? Author Type: Registered Nurse Type: Patient Education Filed: 05/27/2019 9:35 AM Note Text: PRE OP LEARNING ASSESSMENT PROCEDURE/SURGERY: GI PROCEDURES: Colonoscopy READINESS TO LEARN COGNITIVE ABILITY: Alert and oriented MOTIVATION TO LEARN: Eager Interested FAMILY SUPPORT: High - Very involved in pt care PATIENT LEARNS BEST BY: Individual Instruction Written Instruction - Hand-outs Verbal Instruction Multiple Methods FACTORS AFFECTING LEARNING: None PHYSICAL LIMITATIONS AFFECTING LEARNING: None Electronically Signed By: Macy Khalil RN In Department: AMBULATORY SURGERY Normal [facility] CNOVon 05-01-2019 CNOV Office Visit (GENSWS ) ROYCEDANA Tavarez ([id number]) 1950 M Date Time Provider Department 05/01/19 1:00 PM YOUSUF CHÁVEZ During your visit today, we recorded the following information about you: Temperature Pulse Blood pressure Weight 98.1 degrees 70/minute 134/84 77.3 kg Height 1.778 m Yousuf Chávez MD 05/01/2019 2:05 PM Signed HISTORY AND PHYSICAL Dana Swan Royce 1950 REFERRING PHYSICIAN: Jory Tapia DO CHIEF COMPLAINT: Consult (Consult Colonscopy) HPI: The patient is a 68 year old male referred for endoscopy. Dana notes no history of colon complaints. The patient notes no history of upper GI complaints. Dana has undergone prior endoscopy. He had a colonoscopy 5 years previously that demonstrated no abnormalities, but the prep was poor. The patient is being seen by me today at the request of Dr. Jory Tapia DO for my opinion and advice regarding follow up colonoscopy. PAST MEDICAL HISTORY Diagnosis Date - Unspecified hemorrhoids without mention of complication PAST SURGICAL HISTORY Procedure Laterality Date - COLONOSCOP W/ OR W/O [facility] SPEC 08/28/13 Colonoscopy - EXCISION OF UVULA flapped removed - REMOVAL OF TONSILS,<12 Y/O - VASECTOMY HX 07/16/1989 Current Outpatient Medications: [place]-3 Fatty Acids-Vitamin E (FISH OIL) 1,000 mg cap Take 1 capsule by mouth once daily. multivitamin tablet Take 1 tablet by mouth once daily. peg 3350-Electrolytes (GOLYTELY) 236-22.74-6.74 -5.86 gram suspension Take 4,000 mL by mouth one time only for 1 dose. Refer to printed prep instructions from your doctor. peg 3350-electrolytes 240-22.72-6.72 gram solution Take 4000 ml as directed. Follow written instructions given at the doctors office. FLAXSEED OIL ORAL Take by mouth as directed. spreads on cereal No current facility-administered medications for this visit. 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: [employer] Social Needs Financial resource strain: Not on file Food insecurity: Worry: Not on file Inability: Not on file Transportation needs: Medical: Not on file Non-medical: Not on file Tobacco Use Smoking status: Never Smoker Smokeless tobacco: Never Used Substance and Sexual Activity Alcohol use: Yes Comment: occassionally Drug use: No Sexual activity: Not on file Lifestyle Physical activity: Days per week: Not on file Minutes per session: Not on file Stress: Not on file Relationships Social connections: Talks on phone: Not on file Gets together: Not on file Attends voodoo service: Not on file Active member of club or organization: Not on file Attends meetings of clubs or organizations: Not on file Relationship status: Not on file Intimate partner violence: Fear of current or ex partner: Not on file Emotionally abused: Not on file Physically abused: Not on file Forced sexual activity: Not on file Other Topics Concerns: Not on file Social History Narrative Not on file FAMILY HISTORY: FAMILY HISTORY Problem Relation Age of Onset - Heart Maternal Grandfather at 78 heart attack-hardening of arteries - Emphysema Father in 1963, possible lung cancer- at 59-60yrs of age - Heart Mother at 78, found node on lungs - Psychiatry Mother emotional breakdown-depression - Alcohol/Drug Brother 1/2 brother-heart attack - Heart Brother triple bypass-1/2 brother - Diabetes Brother 1/2 brother REVIEW OF SYMPTOMS: The review of systems data was entered by the nurse and reviewed by me REVIEW OF SYSTEMS: General: The patient denies fatigue, denies weight loss, denies weight gain, denies feeling hot, and denies feelings of cold. Eyes: The patient denies glaucoma, denies eye injury/surgery, wears glasses or contacts. Ear/Nose/Throat: The patient denies allergies, denies hayfever, denies ear infections, and denies bloody noses. Cardiovascular: The patient denies chest pain, denies heart disease, denies high blood pressure,denies cardiac stent, denies prior heart attack, denies irregular heart beat, denies high cholesterol, denies poor circulation, denies heart failure, other cardiac issues, denies claudication, denies cold feet, denies peripheral arterial stent. Respiratory: The patient denies tuberculosis, denies pneumonia, denies frequent cough, denies pulmonary embolism, denies shortness of breath, and denies coughing up blood. Gastrointestinal: The patient denies difficulty swallowing, denies acid reflux, denies ulcers, denies vomiting, denies jaundice/hepatitis, denies gallbladder problems, denies black or tarry stools, denies hemorrhoids, denies bleeding from rectum, denies diverticulitis, denies constipation, denies diarrhea, denies loss of stool control, and denies hernias. Kidney/Bladder: The patient denies kidney stones, denies urine infections, and denies bloody urine. Skin: The patient denies a history of skin cancer, denies bleeding/changing moles, and NOTES a history of skin rash. Neurologic: The patient denies a history of epilepsy/convulsions, denies headaches, denies head/spinal injuries, and denies stroke/TIA. Psychiatric: The patient denies psychiatric medications, denies depression, and denies voices, denies substance abuse. Endocrine: The patient denies thyroid disorders, denies diabetes, and denies hormonal problems. Hematologic: The patient denies a history of bruising, denies bleeding, and denies anemia, denies blood clots. Infections: The patient denies a history of measles and mumps, denies rheumatic fever, and denies sexually transmitted diseases. Musculoskeletal: The patient NOTES back pain/injury, denies back problems, NOTES sciatica, denies knee/foot trouble, NOTES arthritis, or denies gout. ? ? When was patient's last Mammogram screening? N/A ? Last Colonoscopy: 2013 ? Kaleb Paz PHYSICAL EXAMINATION: General: The patient is 68 year old male, well nourished, well hydrated in no acute distress. The patient is oriented to time, place, and person. VITALS: Blood pressure 134/84, pulse 70, temperature 36.7 ?C (98.1 ?F), temperature source Temporal Artery, height 177.8 cm (5' 10), weight 77.3 kg (170 lb 6.4 oz), SpO2 97 %. Body mass index is 24.45 kg/m?. HEENT: Normal cephalic, ataumatic, pupils are equally round, sclera are anicteric, mucous membranes are moist, oropharynx is clear. Neck has no masses, asymmetry or lymphadenopathy. Thyroid is unremarkable. Respiratory: Clear to auscultation and percussion. Normal respiratory excursion and pattern. Cardiac: Examination is regular rate and rhythm. Abdominal exam: Soft, nontender, with no palpable masses. No hepatosplenomegaly. No palpable hernias. Rectal exam: exam deferred Extremities: no clubbing, cyanosis or edema. No adenopathy. Other: LABORATORY VALUES: As Noted RADIOLOGIC STUDIES: As Noted Assessment IMPRESSION: screening colonoscopy PLAN: I plan to perform lower endoscopy. We discussed the risks and benefits of the planned endoscopy. I have informed the patient that complications can occur including failure to complete the endoscopy and perforation. The patient had the opportunity to ask questions concerning the planned endoscopy. My staff has also explained the procedure to the patient in understandable terms and has given the patient printed material concerning the procedure. The patient freely consents to surgery. I plan to use golytely bowel preparation for endoscopy Diagnoses: (Z12.11) Special screening for malignant neoplasm of colon (primary encounter diagnosis) A letter was sent to Dr. Jory Tapia DO indicating the above finding for this patient. Return to Clinic: The patient is instructed to follow-up with me after the testing has been completed. MD Yousuf Quiroz MD 05/01/2019 1:23 PM Signed How to Prepare for Your Colonoscopy Using Golytely, Nulytely, Trilyte or Colyte Preparations with Conscious Sedation IMPORTANT - Read These Instructions at Least 2 Weeks Before your Colonoscopy [place] Instructions: ? Your bowel must be empty so that your doctor can clearly view your colon. Follow all of the instructions in this handout EXACTLY as they are written. If you do NOT follow the directions for when to start drinking the bowel preparation, your colonoscopy WILL be cancelled. ? Do NOT eat any solid food the ENTIRE day before your colonoscopy. ? Buy your bowel preparation at least 5 days before your colonoscopy. ? Do NOT mix the solution until the day before your colonoscopy. Designated Student Outreach Coordinator on the Day of Your Exam A responsible family member or friend MUST come with you to your colonoscopy and REMAIN in the endoscopy area until you are discharged. You are NOT ALLOWED to drive, take a taxi or bus, or leave the Endoscopy Center ALONE. If you do not have a responsible dump truck driver off highway (family member or friend) with you to take you home, you exam cannot be done with sedation and will be cancelled. Medications Some of the medications you take may need to be stopped or adjusted before your colonoscopy. You MUST call the doctor who ordered any of the following medicines at least 2 weeks before your colonoscopy. ? Blood thinners - such as Coumadin (warfarin), Plavix (clopidogrel), Ticlid (ticlopidine hydrochloride), Agrylin (anagrelide), Xarelto (Rivaroxaban), Pradaxa (Dabigatran), Eliquis (Apixaban), and Effient (Prasugrel). ? Insulin or diabetes pills. Please call the doctor that monitors your glucose levels. Your insulin dosage may need to be adjusted due to the diet restrictions required with this bowel preparation. (Please bring your diabetes medicines with you on the day of your procedure.) If you take aspirin, take it and ALL other medications prescribed by your doctor. On the day of your colonoscopy, take your medications with a sip of water. Five (5) Days Before Your Colonoscopy ? Do NOT take medicines that stop diarrhea - such as Imodium, Kaopectate, or Pepto Bismol. ? Do NOT take fiber supplements - such as Metamucil, Citrucel, or Perdiem. ? Do NOT take products that contain iron - such as multi-vitamins (the label lists what is in the products). ? Do NOT take Vitamin E. Buy the prescription bowel preparation solution at your local pharmacy or drugstore pharmacy. Three (3) Days Before Your Colonoscopy ? Do NOT eat high-fiber foods - such as popcorn, beans, seeds (flax, sunflower, quinoa), multigrain bread, nuts, salad/vegetables, or fresh and dried fruit. One (1) Day Before Your Colonoscopy Only drink clear liquids the ENTIRE DAY before your colonoscopy. Do NOT eat any solid foods. Drink at least 8 ounces of clear liquids every hour after waking up. The clear liquids you can drink include: ? Water, apple, or white grape juice; broth; coffee or tea (without milk or creamer); clear carbonated beverages such as milan gordon or lemon-tuluksak soda; Gatorade or other sports drinks (not red); George-Aid or other flavored drinks (not red). You may eat plain jello or other gelatins (not red) or popsicles (not red). Do NOT drink alcohol on the day before or the day of the procedure. When to Mix and Drink Your Bowel Prep Follow the instructions on the label. After mixing, place the solution in the refrigerator for a couple of hours before drinking. You may add the flavor pack that came with the bowel preparation. Do NOT add ice, sugar or any flavorings to the solution. Morning Appointment (Before 12 noon) Step 1: ? Start drinking the bowel preparation at 6 PM the evening before your colonoscopy. Drink an 8-oz glass of bowel preparation every 10 minutes for a total of 8 glasses. ? You may continue to drink clear liquids until bedtime. Step 2: The day of the colonoscopy (4 hours before your exam). ? Drink an 8-oz glass of bowel preparation every 10 minutes for a total of 8 glasses. ? You may continue to drink clear liquids up to 2 hours before your exam. If you take aspirin, take it and ALL other prescribed medicines with a sip of water on the day of your colonoscopy. Afternoon Appointment (After 12 noon) ? Start drinking the bowel preparation at 6 AM the day of your colonoscopy. Drink an 8-oz glass of bowel preparation every 10 minutes. You must finish drinking the solution by 9 AM. ? You may continue to drink clear liquids up to 2 hours before your exam. If you take aspirin, take it and ALL other prescribed medicines with a sip of water on the day of your colonoscopy. Kaleb Paz 05/01/2019 1:54 PM Signed REVIEW OF SYSTEMS: General: The patient denies fatigue, denies weight loss, denies weight gain, denies feeling hot, and denies feelings of cold. Eyes: The patient denies glaucoma, denies eye injury/surgery, wears glasses or contacts. Ear/Nose/Throat: The patient denies allergies, denies hayfever, denies ear infections, and denies bloody noses. Cardiovascular: The patient denies chest pain, denies heart disease, denies high blood pressure,denies cardiac stent, denies prior heart attack, denies irregular heart beat, denies high cholesterol, denies poor circulation, denies heart failure, other cardiac issues, denies claudication, denies cold feet, denies peripheral arterial stent. Respiratory: The patient denies tuberculosis, denies pneumonia, denies frequent cough, denies pulmonary embolism, denies shortness of breath, and denies coughing up blood. Gastrointestinal: The patient denies difficulty swallowing, denies acid reflux, denies ulcers, denies vomiting, denies jaundice/hepatitis, denies gallbladder problems, denies black or tarry stools, denies hemorrhoids, denies bleeding from rectum, denies diverticulitis, denies constipation, denies diarrhea, denies loss of stool control, and denies hernias. Kidney/Bladder: The patient denies kidney stones, denies urine infections, and denies bloody urine. Skin: The patient denies a history of skin cancer, denies bleeding/changing moles, and NOTES a history of skin rash. Neurologic: The patient denies a history of epilepsy/convulsions, denies headaches, denies head/spinal injuries, and denies stroke/TIA. Psychiatric: The patient denies psychiatric medications, denies depression, and denies voices, denies substance abuse. Endocrine: The patient denies thyroid disorders, denies diabetes, and denies hormonal problems. Hematologic: The patient denies a history of bruising, denies bleeding, and denies anemia, denies blood clots. Infections: The patient denies a history of measles and mumps, denies rheumatic fever, and denies sexually transmitted diseases. Musculoskeletal: The patient NOTES back pain/injury, denies back problems, NOTES sciatica, denies knee/foot trouble, NOTES arthritis, or denies gout. When was patient's last Mammogram screening? N/A Last Colonoscopy: 2013 Kaleb Paz Referring Provider: JORY TAPIA [[id number]] Allergies As of Date: 05/01/2019 Noted Allergy Reaction CODEINE 07/26/2005 PENICILLINS 07/26/2005 STREPTOMYCIN 07/26/2005 Date Reviewed: 05/01/2019 Reviewed by: Yousuf Chávez - Fully Assessed Reason for Visit: Consult [[id number]] Cmt: Consult Colonscopy Primary Visit Diagnosis:Special screening for malignant neoplasm of colon [Z12.11] Order(s):peg 3350-Electrolytes (GOLYTELY) 236-22.74-6.74 -5.86 gram suspensionTake 4,000 mL by mouth one time only for 1 dose. Refer to printed prep instructions from your doctor.Disp: 1 BottleRfl: 0 INSERT IV ([place]) [[id number]] Order #: [id number]: 1 FUTURE IV DISCONTINUE [[id number]] Order #: [id number]: 1 FUTURE INSERT IV ([place]) [[id number]] Order #: [id number]: 1 COLONOSCOPY SCRN NOT HIGH RISK [[id number]] Order #: [id number] FUTURE Prescriptions as of 05/01/2019 Sig: [place]-3 FATTY ACIDS-VITAMIN E* Take 1 capsule by mouth once * MULTIVITAMIN TABLET Take 1 tablet by mouth once d* PEG 3350-ELECTROLYTES 236 GRA* Take 4,000 mL by mouth one ti* PEG 3350 240 GRAM-ELECTROLYTE* Take 4000 ml as directed. Fo* FLAXSEED OIL ORAL Take by mouth as directed. s* Medication notes this encounter PEG 3350 240 GRAM-ELECTROLYTES 22.72 GRAM-6.72 G-5.84 G POWDR FOR SOLN >> León Estrada SOLE [employer]ER WELT 05/01/2019 1:04 PM >> LEÓN ESTRADA LPN [facility] May 01, 2019 1:04 PM please d.c FLAXSEED OIL ORAL >> León Estrada SOLE STAPLER WELT 05/01/2019 1:04 PM >> LEÓN ESTRADA LPN [facility] May 01, 2019 1:04 PM Please d/c Problem List As Of Date: 05/01/2019 (None) Other instructions from your clinician: How to Prepare for Your Colonoscopy Using Golytely, Nulytely, Trilyte or Colyte Preparations with Conscious Sedation IMPORTANT - Read These Instructions at Least 2 Weeks Before your Colonoscopy [place] Instructions: ? Your bowel must be empty so that your doctor can clearly view your colon. Follow all of the instructions in this handout EXACTLY as they are written. If you do NOT follow the directions for when to start drinking the bowel preparation, your colonoscopy WILL be cancelled. ? Do NOT eat any solid food the ENTIRE day before your colonoscopy. ? Buy your bowel preparation at least 5 days before your colonoscopy. ? Do NOT mix the solution until the day before your colonoscopy. Designated Student Outreach Coordinator on the Day of Your Exam A responsible family member or friend MUST come with you to your colonoscopy and REMAIN in the endoscopy area until you are discharged. You are NOT ALLOWED to drive, take a taxi or bus, or leave the Endoscopy Center ALONE. If you do not have a responsible dump truck driver off highway (family member or friend) with you to take you home, you exam cannot be done with sedation and will be cancelled. Medications Some of the medications you take may need to be stopped or adjusted before your colonoscopy. You MUST call the doctor who ordered any of the following medicines at least 2 weeks before your colonoscopy. ? Blood thinners - such as Coumadin (warfarin), Plavix (clopidogrel), Ticlid (ticlopidine hydrochloride), Agrylin (anagrelide), Xarelto (Rivaroxaban), Pradaxa (Dabigatran), Eliquis (Apixaban), and Effient (Prasugrel). ? Insulin or diabetes pills. Please call the doctor that monitors your glucose levels. Your insulin dosage may need to be adjusted due to the diet restrictions required with this bowel preparation. (Please bring your diabetes medicines with you on the day of your procedure.) If you take aspirin, take it and ALL other medications prescribed by your doctor. On the day of your colonoscopy, take your medications with a sip of water. Five (5) Days Before Your Colonoscopy ? Do NOT take medicines that stop diarrhea - such as Imodium, Kaopectate, or Pepto Bismol. ? Do NOT take fiber supplements - such as Metamucil, Citrucel, or Perdiem. ? Do NOT take products that contain iron - such as multi-vitamins (the label lists what is in the products). ? Do NOT take Vitamin E. Buy the prescription bowel preparation solution at your local pharmacy or drugstore pharmacy. Three (3) Days Before Your Colonoscopy ? Do NOT eat high-fiber foods - such as popcorn, beans, seeds (flax, sunflower, quinoa), multigrain bread, nuts, salad/vegetables, or fresh and dried fruit. One (1) Day Before Your Colonoscopy Only drink clear liquids the ENTIRE DAY before your colonoscopy. Do NOT eat any solid foods. Drink at least 8 ounces of clear liquids every hour after waking up. The clear liquids you can drink include: ? Water, apple, or white grape juice; broth; coffee or tea (without milk or creamer); clear carbonated beverages such as milan gordon or lemon-tuluksak soda; Gatorade or other sports drinks (not red); George-Aid or other flavored drinks (not red). You may eat plain jello or other gelatins (not red) or popsicles (not red). Do NOT drink alcohol on the day before or the day of the procedure. When to Mix and Drink Your Bowel Prep Follow the instructions on the label. After mixing, place the solution in the refrigerator for a couple of hours before drinking. You may add the flavor pack that came with the bowel preparation. Do NOT add ice, sugar or any flavorings to the solution. Morning Appointment (Before 12 noon) Step 1: ? Start drinking the bowel preparation at 6 PM the evening before your colonoscopy. Drink an 8-oz glass of bowel preparation every 10 minutes for a total of 8 glasses. ? You may continue to drink clear liquids until bedtime. Step 2: The day of the colonoscopy (4 hours before your exam). ? Drink an 8-oz glass of bowel preparation every 10 minutes for a total of 8 glasses. ? You may continue to drink clear liquids up to 2 hours before your exam. If you take aspirin, take it and ALL other prescribed medicines with a sip of water on the day of your colonoscopy. Afternoon Appointment (After 12 noon) ? Start drinking the bowel preparation at 6 AM the day of your colonoscopy. Drink an 8-oz glass of bowel preparation every 10 minutes. You must finish drinking the solution by 9 AM. ? You may continue to drink clear liquids up to 2 hours before your exam. If you take aspirin, take it and ALL other prescribed medicines with a sip of water on the day of your colonoscopy. Visit Notes: >> Kaleb Paz [facility] May 01, 2019 1:53 PM Status: Signed REVIEW OF SYSTEMS: General: The patient denies fatigue, denies weight loss, denies weight gain, denies feeling hot, and denies feelings of cold. Eyes: The patient denies glaucoma, denies eye injury/surgery, wears glasses or contacts. Ear/Nose/Throat: The patient denies allergies, denies hayfever, denies ear infections, and denies bloody noses. Cardiovascular: The patient denies chest pain, denies heart disease, denies high blood pressure,denies cardiac stent, denies prior heart attack, denies irregular heart beat, denies high cholesterol, denies poor circulation, denies heart failure, other cardiac issues, denies claudication, denies cold feet, denies peripheral arterial stent. Respiratory: The patient denies tuberculosis, denies pneumonia, denies frequent cough, denies pulmonary embolism, denies shortness of breath, and denies coughing up blood. Gastrointestinal: The patient denies difficulty swallowing, denies acid reflux, denies ulcers, denies vomiting, denies jaundice/hepatitis, denies gallbladder problems, denies black or tarry stools, denies hemorrhoids, denies bleeding from rectum, denies diverticulitis, denies constipation, denies diarrhea, denies loss of stool control, and denies hernias. Kidney/Bladder: The patient denies kidney stones, denies urine infections, and denies bloody urine. Skin: The patient denies a history of skin cancer, denies bleeding/changing moles, and NOTES a history of skin rash. Neurologic: The patient denies a history of epilepsy/convulsions, denies headaches, denies head/spinal injuries, and denies stroke/TIA. Psychiatric: The patient denies psychiatric medications, denies depression, and denies voices, denies substance abuse. Endocrine: The patient denies thyroid disorders, denies diabetes, and denies hormonal problems. Hematologic: The patient denies a history of bruising, denies bleeding, and denies anemia, denies blood clots. Infections: The patient denies a history of measles and mumps, denies rheumatic fever, and denies sexually transmitted diseases. Musculoskeletal: The patient NOTES back pain/injury, denies back problems, NOTES sciatica, denies knee/foot trouble, NOTES arthritis, or denies gout. When was patient's last Mammogram screening? N/A Last Colonoscopy: 2013 Kaleb Paz Prescriptions ordered this encounter Disp Refills Start End PEG 3350-ELECTROLYTES 236 GRAM-22.74* 1 Duran* 0 05/01/2019 05/01/2019 Route: ORAL Sig: Take 4,000 mL by mouth one time only for 1 dose. Refer to printed prep instructions from your doctor. Letter Text Encounter Status:Closed by YOUSUF CHÁVEZ MD on 05/01/19 [facility] HOSP 05-01-2019 [facility] Patient:Dana Crane MRN: Height:5' 10(1.778 m) Weight:170 lb 6.7 oz (77.3 kg) Outpatient Medications as of 05/27/19: peg 3350-electrolytes 240-22.72-6.72 gram solution FLAXSEED OIL ORAL [place]-3 Fatty Acids-Vitamin E (FISH OIL) 1,000 mg cap multivitamin tablet Admission/Clinic Administered Medications as of 05/27/19: lactated ringers infusion Problem List: No problem list on file for this patient. Allergies: Codeine Penicillins Streptomycin Date Verified: 05/27/19 Lab Values No results within the last 30 days for the following basenames: K,HCT Progress Notes ([facility]): Kaleb Paz 05/01/2019 1:49 PM Signed 05-27-2019 colon asc Progress Notes ([facility]): Yousuf Chávez MD 05/01/2019 2:05 PM Signed HISTORY AND PHYSICAL Dana Crane 1950 REFERRING PHYSICIAN: Jory Tapia DO CHIEF COMPLAINT: Consult (Consult Colonscopy) HPI: The patient is a 68 year old male referred for endoscopy. Dana notes no history of colon complaints. The patient notes no history of upper GI complaints. Dana has undergone prior endoscopy. He had a colonoscopy 5 years previously that demonstrated no abnormalities, but the prep was poor. The patient is being seen by me today at the request of Dr. Jory Tapia DO for my opinion and advice regarding follow up colonoscopy. PAST MEDICAL HISTORY Diagnosis Date - Unspecified hemorrhoids without mention of complication PAST SURGICAL HISTORY Procedure Laterality Date - [facility] 08/28/13 Colonoscopy - EXCISION OF UVULA flapped removed - REMOVAL OF TONSILS,<12 Y/O - VASECTOMY HX 07/16/1989 Current Outpatient Medications: [place]-3 Fatty Acids-Vitamin E (FISH OIL) 1,000 mg cap Take 1 capsule by mouth once daily. multivitamin tablet Take 1 tablet by mouth once daily. peg 3350-Electrolytes (GOLYTELY) 236-22.74-6.74 -5.86 gram suspension Take 4,000 mL by mouth one time only for 1 dose. Refer to printed prep instructions from your doctor. peg 3350-electrolytes 240-22.72-6.72 gram solution Take 4000 ml as directed. Follow written instructions given at the doctors office. FLAXSEED OIL ORAL Take by mouth as directed. spreads on cereal No current facility-administered medications for this visit. 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: [employer] Social Needs Financial resource strain: Not on file Food insecurity: Worry: Not on file Inability: Not on file Transportation needs: Medical: Not on file Non-medical: Not on file Tobacco Use Smoking status: Never Smoker Smokeless tobacco: Never Used Substance and Sexual Activity Alcohol use: Yes Comment: occassionally Drug use: No Sexual activity: Not on file Lifestyle Physical activity: Days per week: Not on file Minutes per session: Not on file Stress: Not on file Relationships Social connections: Talks on phone: Not on file Gets together: Not on file Attends voodoo service: Not on file Active member of club or organization: Not on file Attends meetings of clubs or organizations: Not on file Relationship status: Not on file Intimate partner violence: Fear of current or ex partner: Not on file Emotionally abused: Not on file Physically abused: Not on file Forced sexual activity: Not on file Other Topics Concerns: Not on file Social History Narrative Not on file FAMILY HISTORY: FAMILY HISTORY Problem Relation Age of Onset - Heart Maternal Grandfather at 78 heart attack-hardening of arteries - Emphysema Father in 1963, possible lung cancer- at 59-60yrs of age - Heart Mother at 78, found node on lungs - Psychiatry Mother emotional breakdown-depression - Alcohol/Drug Brother 1/2 brother-heart attack - Heart Brother triple bypass-1/2 brother - Diabetes Brother 1/2 brother REVIEW OF SYMPTOMS: The review of systems data was entered by the nurse and reviewed by me REVIEW OF SYSTEMS: General: The patient denies fatigue, denies weight loss, denies weight gain, denies feeling hot, and denies feelings of cold. Eyes: The patient denies glaucoma, denies eye injury/surgery, wears glasses or contacts. Ear/Nose/Throat: The patient denies allergies, denies hayfever, denies ear infections, and denies bloody noses. Cardiovascular: The patient denies chest pain, denies heart disease, denies high blood pressure,denies cardiac stent, denies prior heart attack, denies irregular heart beat, denies high cholesterol, denies poor circulation, denies heart failure, other cardiac issues, denies claudication, denies cold feet, denies peripheral arterial stent. Respiratory: The patient denies tuberculosis, denies pneumonia, denies frequent cough, denies pulmonary embolism, denies shortness of breath, and denies coughing up blood. Gastrointestinal: The patient denies difficulty swallowing, denies acid reflux, denies ulcers, denies vomiting, denies jaundice/hepatitis, denies gallbladder problems, denies black or tarry stools, denies hemorrhoids, denies bleeding from rectum, denies diverticulitis, denies constipation, denies diarrhea, denies loss of stool control, and denies hernias. Kidney/Bladder: The patient denies kidney stones, denies urine infections, and denies bloody urine. Skin: The patient denies a history of skin cancer, denies bleeding/changing moles, and NOTES a history of skin rash. Neurologic: The patient denies a history of epilepsy/convulsions, denies headaches, denies head/spinal injuries, and denies stroke/TIA. Psychiatric: The patient denies psychiatric medications, denies depression, and denies voices, denies substance abuse. Endocrine: The patient denies thyroid disorders, denies diabetes, and denies hormonal problems. Hematologic: The patient denies a history of bruising, denies bleeding, and denies anemia, denies blood clots. Infections: The patient denies a history of measles and mumps, denies rheumatic fever, and denies sexually transmitted diseases. Musculoskeletal: The patient NOTES back pain/injury, denies back problems, NOTES sciatica, denies knee/foot trouble, NOTES arthritis, or denies gout. ? ? When was patient's last Mammogram screening? N/A ? Last Colonoscopy: 2013 ? Kaleb Paz PHYSICAL EXAMINATION: General: The patient is 68 year old male, well nourished, well hydrated in no acute distress. The patient is oriented to time, place, and person. VITALS: Blood pressure 134/84, pulse 70, temperature 36.7 ?C (98.1 ?F), temperature source Temporal Artery, height 177.8 cm (5' 10), weight 77.3 kg (170 lb 6.4 oz), SpO2 97 %. Body mass index is 24.45 kg/m?. HEENT: Normal cephalic, ataumatic, pupils are equally round, sclera are anicteric, mucous membranes are moist, oropharynx is clear. Neck has no masses, asymmetry or lymphadenopathy. Thyroid is unremarkable. Respiratory: Clear to auscultation and percussion. Normal respiratory excursion and pattern. Cardiac: Examination is regular rate and rhythm. Abdominal exam: Soft, nontender, with no palpable masses. No hepatosplenomegaly. No palpable hernias. Rectal exam: exam deferred Extremities: no clubbing, cyanosis or edema. No adenopathy. Other: LABORATORY VALUES: As Noted RADIOLOGIC STUDIES: As Noted Assessment IMPRESSION: screening colonoscopy PLAN: I plan to perform lower endoscopy. We discussed the risks and benefits of the planned endoscopy. I have informed the patient that complications can occur including failure to complete the endoscopy and perforation. The patient had the opportunity to ask questions concerning the planned endoscopy. My staff has also explained the procedure to the patient in understandable terms and has given the patient printed material concerning the procedure. The patient freely consents to surgery. I plan to use golytely bowel preparation for endoscopy Diagnoses: (Z12.11) Special screening for malignant neoplasm of colon (primary encounter diagnosis) A letter was sent to Dr. Jory Tapia DO indicating the above finding for this patient. Return to Clinic: The patient is instructed to follow-up with me after the testing has been completed. MD Yousuf Quiroz MD 05/01/2019 1:23 PM Signed How to Prepare for Your Colonoscopy Using Golytely, Nulytely, Trilyte or Colyte Preparations with Conscious Sedation IMPORTANT - Read These Instructions at Least 2 Weeks Before your Colonoscopy [place] Instructions: ? Your bowel must be empty so that your doctor can clearly view your colon. Follow all of the instructions in this handout EXACTLY as they are written. If you do NOT follow the directions for when to start drinking the bowel preparation, your colonoscopy WILL be cancelled. ? Do NOT eat any solid food the ENTIRE day before your colonoscopy. ? Buy your bowel preparation at least 5 days before your colonoscopy. ? Do NOT mix the solution until the day before your colonoscopy. Designated Student Outreach Coordinator on the Day of Your Exam A responsible family member or friend MUST come with you to your colonoscopy and REMAIN in the endoscopy area until you are discharged. You are NOT ALLOWED to drive, take a taxi or bus, or leave the Endoscopy Center ALONE. If you do not have a responsible dump truck driver off highway (family member or friend) with you to take you home, you exam cannot be done with sedation and will be cancelled. Medications Some of the medications you take may need to be stopped or adjusted before your colonoscopy. You MUST call the doctor who ordered any of the following medicines at least 2 weeks before your colonoscopy. ? Blood thinners - such as Coumadin (warfarin), Plavix (clopidogrel), Ticlid (ticlopidine hydrochloride), Agrylin (anagrelide), Xarelto (Rivaroxaban), Pradaxa (Dabigatran), Eliquis (Apixaban), and Effient (Prasugrel). ? Insulin or diabetes pills. Please call the doctor that monitors your glucose levels. Your insulin dosage may need to be adjusted due to the diet restrictions required with this bowel preparation. (Please bring your diabetes medicines with you on the day of your procedure.) If you take aspirin, take it and ALL other medications prescribed by your doctor. On the day of your colonoscopy, take your medications with a sip of water. Five (5) Days Before Your Colonoscopy ? Do NOT take medicines that stop diarrhea - such as Imodium, Kaopectate, or Pepto Bismol. ? Do NOT take fiber supplements - such as Metamucil, Citrucel, or Perdiem. ? Do NOT take products that contain iron - such as multi-vitamins (the label lists what is in the products). ? Do NOT take Vitamin E. Buy the prescription bowel preparation solution at your local pharmacy [facility]. Three (3) Days Before Your Colonoscopy ? Do NOT eat high-fiber foods - such as popcorn, beans, seeds (flax, sunflower, quinoa), multigrain bread, nuts, salad/vegetables, or fresh and dried fruit. One (1) Day Before Your Colonoscopy Only drink clear liquids the ENTIRE DAY before your colonoscopy. Do NOT eat any solid foods. Drink at least 8 ounces of clear liquids every hour after waking up. The clear liquids you can drink include: ? Water, apple, or white grape juice; broth; coffee or tea (without milk or creamer); clear carbonated beverages such as milan gordon or lemon-tuluksak soda; Gatorade or other sports drinks (not red); George-Aid or other flavored drinks (not red). You may eat plain jello or other gelatins (not red) or popsicles (not red). Do NOT drink alcohol on the day before or the day of the procedure. When to Mix and Drink Your Bowel Prep Follow the instructions on the label. After mixing, place the solution in the refrigerator for a couple of hours before drinking. You may add the flavor pack that came with the bowel preparation. Do NOT add ice, sugar or any flavorings to the solution. Morning Appointment (Before 12 noon) Step 1: ? Start drinking the bowel preparation at 6 PM the evening before your colonoscopy. Drink an 8-oz glass of bowel preparation every 10 minutes for a total of 8 glasses. ? You may continue to drink clear liquids until bedtime. Step 2: The day of the colonoscopy (4 hours before your exam). ? Drink an 8-oz glass of bowel preparation every 10 minutes for a total of 8 glasses. ? You may continue to drink clear liquids up to 2 hours before your exam. If you take aspirin, take it and ALL other prescribed medicines with a sip of water on the day of your colonoscopy. Afternoon Appointment (After 12 noon) ? Start drinking the bowel preparation at 6 AM the day of your colonoscopy. Drink an 8-oz glass of bowel preparation every 10 minutes. You must finish drinking the solution by 9 AM. ? You may continue to drink clear liquids up to 2 hours before your exam. If you take aspirin, take it and ALL other prescribed medicines with a sip of water on the day of your colonoscopy. Kaleb Paz 05/01/2019 1:54 PM Signed REVIEW OF SYSTEMS: General: The patient denies fatigue, denies weight loss, denies weight gain, denies feeling hot, and denies feelings of cold. Eyes: The patient denies glaucoma, denies eye injury/surgery, wears glasses or contacts. Ear/Nose/Throat: The patient denies allergies, denies hayfever, denies ear infections, and denies bloody noses. Cardiovascular: The patient denies chest pain, denies heart disease, denies high blood pressure,denies cardiac stent, denies prior heart attack, denies irregular heart beat, denies high cholesterol, denies poor circulation, denies heart failure, other cardiac issues, denies claudication, denies cold feet, denies peripheral arterial stent. Respiratory: The patient denies tuberculosis, denies pneumonia, denies frequent cough, denies pulmonary embolism, denies shortness of breath, and denies coughing up blood. Gastrointestinal: The patient denies difficulty swallowing, denies acid reflux, denies ulcers, denies vomiting, denies jaundice/hepatitis, denies gallbladder problems, denies black or tarry stools, denies hemorrhoids, denies bleeding from rectum, denies diverticulitis, denies constipation, denies diarrhea, denies loss of stool control, and denies hernias. Kidney/Bladder: The patient denies kidney stones, denies urine infections, and denies bloody urine. Skin: The patient denies a history of skin cancer, denies bleeding/changing moles, and NOTES a history of skin rash. Neurologic: The patient denies a history of epilepsy/convulsions, denies headaches, denies head/spinal injuries, and denies stroke/TIA. Psychiatric: The patient denies psychiatric medications, denies depression, and denies voices, denies substance abuse. Endocrine: The patient denies thyroid disorders, denies diabetes, and denies hormonal problems. Hematologic: The patient denies a history of bruising, denies bleeding, and denies anemia, denies blood clots. Infections: The patient denies a history of measles and mumps, denies rheumatic fever, and denies sexually transmitted diseases. Musculoskeletal: The patient NOTES back pain/injury, denies back problems, NOTES sciatica, denies knee/foot trouble, NOTES arthritis, or denies gout. When was patient's last Mammogram screening? N/A Last Colonoscopy: 2013 Kaleb Paz Normal [facility] PROGRESSon 05-01-2019 PROGRESS HNO ID: [id number] Author: Yousuf Chávez Service: ? Author Type: Physician Type: Progress Notes Filed: 05/01/2019 2:05 PM Note Text: HISTORY AND PHYSICAL Dana Crane 1950 REFERRING PHYSICIAN: Jory Tapia DO CHIEF COMPLAINT: Consult (Consult Colonscopy) HPI: The patient is a 68 year old male referred for endoscopy. Dana notes no history of colon complaints. The patient notes no history of upper GI complaints. Dana has undergone prior endoscopy. He had a colonoscopy 5 years previously that demonstrated no abnormalities, but the prep was poor. The patient is being seen by me today at the request of Dr. Jory Tapia DO for my opinion and advice regarding follow up colonoscopy. PAST MEDICAL HISTORY Diagnosis Date - Unspecified hemorrhoids without mention of complication PAST SURGICAL HISTORY Procedure Laterality Date - COLONOSCOP W/ OR W/O [facility] SPEC 08/28/13 Colonoscopy - EXCISION OF UVULA flapped removed - REMOVAL OF TONSILS,<12 Y/O - VASECTOMY HX 07/16/1989 Current Outpatient Medications: [place]-3 Fatty Acids-Vitamin E (FISH OIL) 1,000 mg cap Take 1 capsule by mouth once daily. multivitamin tablet Take 1 tablet by mouth once daily. peg 3350-Electrolytes (GOLYTELY) 236-22.74-6.74 -5.86 gram suspension Take 4,000 mL by mouth one time only for 1 dose. Refer to printed prep instructions from your doctor. peg 3350-electrolytes 240-22.72-6.72 gram solution Take 4000 ml as directed. Follow written instructions given at the doctors office. FLAXSEED OIL ORAL Take by mouth as directed. spreads on cereal No current facility-administered medications for this visit. 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: [employer] Social Needs Financial resource strain: Not on file Food insecurity: Worry: Not on file Inability: Not on file Transportation needs: Medical: Not on file Non-medical: Not on file Tobacco Use Smoking status: Never Smoker Smokeless tobacco: Never Used Substance and Sexual Activity Alcohol use: Yes Comment: occassionally Drug use: No Sexual activity: Not on file Lifestyle Physical activity: Days per week: Not on file Minutes per session: Not on file Stress: Not on file Relationships Social connections: Talks on phone: Not on file Gets together: Not on file Attends voodoo service: Not on file Active member of club or organization: Not on file Attends meetings of clubs or organizations: Not on file Relationship status: Not on file Intimate partner violence: Fear of current or ex partner: Not on file Emotionally abused: Not on file Physically abused: Not on file Forced sexual activity: Not on file Other Topics Concerns: Not on file Social History Narrative Not on file FAMILY HISTORY: FAMILY HISTORY Problem Relation Age of Onset - Heart Maternal Grandfather at 78 heart attack-hardening of arteries - Emphysema Father in 1963, possible lung cancer- at 59-60yrs of age - Heart Mother at 78, found node on lungs - Psychiatry Mother emotional breakdown-depression - Alcohol/Drug Brother 1/2 brother-heart attack - Heart Brother triple bypass-1/2 brother - Diabetes Brother 1/2 brother REVIEW OF SYMPTOMS: The review of systems data was entered by the nurse and reviewed by me REVIEW OF SYSTEMS: General: The patient denies fatigue, denies weight loss, denies weight gain, denies feeling hot, and denies feelings of cold. Eyes: The patient denies glaucoma, denies eye injury/surgery, wears glasses or contacts. Ear/Nose/Throat: The patient denies allergies, denies hayfever, denies ear infections, and denies bloody noses. Cardiovascular: The patient denies chest pain, denies heart disease, denies high blood pressure,denies cardiac stent, denies prior heart attack, denies irregular heart beat, denies high cholesterol, denies poor circulation, denies heart failure, other cardiac issues, denies claudication, denies cold feet, denies peripheral arterial stent. Respiratory: The patient denies tuberculosis, denies pneumonia, denies frequent cough, denies pulmonary embolism, denies shortness of breath, and denies coughing up blood. Gastrointestinal: The patient denies difficulty swallowing, denies acid reflux, denies ulcers, denies vomiting, denies jaundice/hepatitis, denies gallbladder problems, denies black or tarry stools, denies hemorrhoids, denies bleeding from rectum, denies diverticulitis, denies constipation, denies diarrhea, denies loss of stool control, and denies hernias. Kidney/Bladder: The patient denies kidney stones, denies urine infections, and denies bloody urine. Skin: The patient denies a history of skin cancer, denies bleeding/changing moles, and NOTES a history of skin rash. Neurologic: The patient denies a history of epilepsy/convulsions, denies headaches, denies head/spinal injuries, and denies stroke/TIA. Psychiatric: The patient denies psychiatric medications, denies depression, and denies voices, denies substance abuse. Endocrine: The patient denies thyroid disorders, denies diabetes, and denies hormonal problems. Hematologic: The patient denies a history of bruising, denies bleeding, and denies anemia, denies blood clots. Infections: The patient denies a history of measles and mumps, denies rheumatic fever, and denies sexually transmitted diseases. Musculoskeletal: The patient NOTES back pain/injury, denies back problems, NOTES sciatica, denies knee/foot trouble, NOTES arthritis, or denies gout. ? ? When was patient's last Mammogram screening? N/A ? Last Colonoscopy: 2013 ? Kaleb Paz PHYSICAL EXAMINATION: General: The patient is 68 year old male, well nourished, well hydrated in no acute distress. The patient is oriented to time, place, and person. VITALS: Blood pressure 134/84, pulse 70, temperature 36.7 ?C (98.1 ?F), temperature source Temporal Artery, height 177.8 cm (5' 10), weight 77.3 kg (170 lb 6.4 oz), SpO2 97 %. Body mass index is 24.45 kg/m?. HEENT: Normal cephalic, ataumatic, pupils are equally round, sclera are anicteric, mucous membranes are moist, oropharynx is clear. Neck has no masses, asymmetry or lymphadenopathy. Thyroid is unremarkable. Respiratory: Clear to auscultation and percussion. Normal respiratory excursion and pattern. Cardiac: Examination is regular rate and rhythm. Abdominal exam: Soft, nontender, with no palpable masses. No hepatosplenomegaly. No palpable hernias. Rectal exam: exam deferred Extremities: no clubbing, cyanosis or edema. No adenopathy. Other: LABORATORY VALUES: As Noted RADIOLOGIC STUDIES: As Noted Assessment IMPRESSION: screening colonoscopy PLAN: I plan to perform lower endoscopy. We discussed the risks and benefits of the planned endoscopy. I have informed the patient that complications can occur including failure to complete the endoscopy and perforation. The patient had the opportunity to ask questions concerning the planned endoscopy. My staff has also explained the procedure to the patient in understandable terms and has given the patient printed material concerning the procedure. The patient freely consents to surgery. I plan to use golytely bowel preparation for endoscopy Diagnoses: (Z12.11) Special screening for malignant neoplasm of colon (primary encounter diagnosis) A letter was sent to Dr. Jory Tapia DO indicating the above finding for this patient. Return to Clinic: The patient is instructed to follow-up with me after the testing has been completed. Yousuf Chávez MD [facility] Encounters Encounter Date Encounter Type Care Provider Facility Start: 02-23-2025 [facility] Facility: [facility] Start: 07-23-2024 End: 07-23-2024 [facility] Facility:[facility] Start: 01-02-2022 End: 01-02-2022 Patient encounter procedure [facility] Payers Date Payer Category Payer Private Health Insurance 101 [id number] 2024 Self-pay [id number] Private Health Insurance SELF PAY INSURAN [id number] Unknown SELF PAY INSURANCE [id number] Unknown [id number] Unknown [id number] Social History Date Type [facility]ail [facility] Work Phone: Start: 1950 Sex Assigned At Male [facility] Work Phone: Evaluation note Note Date & Type Note Facility Evaluation note No assessment information availa ble [facility] Work Phone: Summary Purpose Family History No Family History Records FoundNo Family History Records Found Advance Directives No Advanced Directives Records FoundNo Advanced Directives Records Found Additional Source Comments (unrecognized sect ion and content) No Status Records FoundNo Status Records Found INFORMATION SOURCE (unrecogn ized section and content) DATE CREATED AUTHOR 05/27/2019 [facility] DATE CREATED AUTHOR AUTHOR'S LALO ROMERO 02/24/2025 [facility] Goals (unrecognized section and content) Goals may be documented in a n alternate section FOR RECORDS PERTAINING TO PATIENTS WHO ARE OR HAVE BEEN ENROLLED IN A CHEMICAL DEPENDENCY/SUBSTANCEABUSE PROGRAM, SOME INFORMATION MAY BE OMITTED. This clinical summary was aggregated from multiple sources. Caution should be exercised in using it in the provision of clinical care. This summary normalizes information from multiple sources, and as a consequence, information in this document may materially change the coding, format and clinical context of patient data. In addition, data may be omitted in some cases. CLINICAL DECISIONS SHOULD BE BASED ON THE PRIMARY CLINICAL RECORDS. [employer] provides no warranty or guarantee of the accuracy or completeness of information in this document.
== END | disposition home or self-care (01) ==
LOC: BFHLAB 10:11
PROVIDERS: PCP Family Medicine; Visit Provider Family Medicine
DX: E78.5 Hyperlipidemia, unspecified (principal); R97.20 Elevated prostate specific antigen [PSA]
CPT/HCPCS: 36415; 80061; 84153